=== PATIENT | female | born 1950 | race Asian ===

== ENCOUNTER 2021-06-05 12:08 | Inpatient (IN) | payer MEDICAID ==
[~2021-06-05] VITALS: Ht 157.5 cm; Wt 57.6 kg
[2021-06-05 12:10] VITALS: BP_SYST 124
[2021-06-05] MEDS ORDERED: KETOROLAC TROMETHAMINE 30 MG VIAL IVP ONE (12:15)
[2021-06-05 12:36] LABS: BASOPHILS % (AUTO) 0.5 % (0.0-2.0); EOSINOPHILS % (AUTO) 0.7 % (0.0-4.0); HEMATOCRIT 41.3 % (36-48); HEMOGLOBIN 14.4 g/dL (12.0-16.0); LYMPHOCYTES # (AUTO) 1.4 K/uL (1.0-5.5); LYMPHOCYTES % (AUTO) 36.3 % (20.5-51.5); MEAN CORPUSCULAR HEMOGLOBIN 31 pg (27-31); MEAN CORPUSCULAR HGB CONC 35 % (32-36); MEAN CORPUSCULAR VOLUME 88 fL (79.0-98.0); MONOCYTES # (AUTO) 0.4 K/uL (0.0-1.0); MONOCYTES % (AUTO) 9.5 % (1.7-9.3); PLATELET COUNT (AUTO) 187 K/uL (130-430); RED CELL DISTRIBUTION WIDTH 12.4 % (9.0-15.0); WHITE BLOOD COUNT (AUTO) 3.8 K/uL (4.8-10.8)
[2021-06-05 12:51] LABS: ANION GAP 6 (5-15); CALCIUM 9.3 mg/dL (8.4-11.0); CHLORIDE 98 mmol/L (98-107); CREATININE 0.87 mg/dL (0.55-1.30); GLUCOSE 249 mg/dL (70-99); POTASSIUM 4.4 mmol/L (3.5-5.1); SODIUM SERUM 134 mmol/L (136-145); UREA NITROGEN, BLOOD 8 mg/dL (8-21)
[2021-06-05 12:54] LABS: GFR AFRICAN AMERICAN 83 mL/min (>90)
[2021-06-05 13:09] LABS: ALANINE AMINOTRANSFERASE 49 U/L (12-78); ASPARTATE AMINOTRANSFERASE 47 U/L (10-37); TOTAL BILIRUBIN 0.2 mg/dL (0.0-1.0)
[2021-06-05 18:15] VITALS: BP_SYST 143
[2021-06-05] MEDS: NACL 0.9% 1,000 ML IV SCH (18:56)
[2021-06-05] MEDS: INSULIN LISPRO SLIDING SCALE 100 UNITS/ML VIAL (humaLOG) SUBCUT PRN ×2 (18:59→20:31)
[2021-06-05 20:15] VITALS: BP_SYST 137
[2021-06-05] MEDS ORDERED: ACETAMINOPHEN 325 MG TABLET PO PRN (20:15)
[2021-06-05] MEDS: ENOXAPARIN SODIUM 40 MG/0.4 ML SYRINGE SUBCUT SCH (20:31)
[2021-06-05] MEDS ORDERED: LIP20 PO (22:11)
[2021-06-05] MEDS ORDERED: ATEN-41 PO (22:11)
[2021-06-05] MEDS ORDERED: MECL-225 PO (22:11)
[2021-06-05] MEDS ORDERED: NEU300 PO (22:11)
[2021-06-05] MEDS ORDERED: POLY15DR64 EACH EYE (22:11)
[2021-06-05] MEDS ORDERED: GLIP10TA11 PO (22:11)
[2021-06-05] MEDS ORDERED: TRAZ300T11 PO (22:11)
[2021-06-05] MEDS ORDERED: OMEP20CA15 PO (22:11)
[2021-06-05] MEDS ORDERED: SITA100T11 PO (22:11)
[2021-06-06 00:12] VITALS: BP_SYST 135
[2021-06-06] MEDS: traZODone HCL 50 MG TABLET (DESYREL) PO PRN ×2 (00:15→22:45)
[2021-06-06] MEDS: NACL 0.9% 1,000 ML IV SCH ×2 (05:21→17:42)
[2021-06-06] MEDS: INSULIN LISPRO SLIDING SCALE 100 UNITS/ML VIAL (humaLOG) SUBCUT PRN ×4 (05:56→22:48)
[2021-06-06 06:41] LABS: BASOPHILS % (AUTO) 0.5 % (0.0-2.0); EOSINOPHILS % (AUTO) 0.8 % (0.0-4.0); HEMATOCRIT 39.3 % (36-48); HEMOGLOBIN 13.9 g/dL (12.0-16.0); LYMPHOCYTES # (AUTO) 2.1 K/uL (1.0-5.5); LYMPHOCYTES % (AUTO) 43.8 % (20.5-51.5); MEAN CORPUSCULAR HEMOGLOBIN 31 pg (27-31); MEAN CORPUSCULAR HGB CONC 35 % (32-36); MEAN CORPUSCULAR VOLUME 87 fL (79.0-98.0); MONOCYTES # (AUTO) 0.3 K/uL (0.0-1.0); MONOCYTES % (AUTO) 7.2 % (1.7-9.3); NEUTROPHILS # (AUTO) 2.3 K/uL (1.8-7.7); NEUTROPHILS % (AUTO) 47.7 % (40.0-70.0); PLATELET COUNT (AUTO) 195 K/uL (130-430); RED BLOOD CELL COUNT(AUTO) 4.52 MIL/uL (4.2-6.2); RED CELL DISTRIBUTION WIDTH 12.5 % (9.0-15.0); WHITE BLOOD COUNT (AUTO) 4.8 K/uL (4.8-10.8)
[2021-06-06] MEDS: ASPIRIN 81 MG TAB.CHEW PO SCH (08:55)
[2021-06-06 08:56] LABS: CALCIUM 8.4 mg/dL (8.4-11.0); CREATININE 0.8 mg/dL (0.55-1.30); POTASSIUM 3.8 mmol/L (3.5-5.1)
[2021-06-06] MEDS: ATENOLOL 25 MG TABLET(TENORMIN) PO SCH (08:56)
[2021-06-06 12:30] VITALS: BP_SYST 134
[2021-06-06 16:39] VITALS: BP_SYST 143
[2021-06-06] MEDS ORDERED: metFORMIN HCL 500 MG TABLET PO ONE (18:30)
[2021-06-06 20:00] VITALS: BP_SYST 135
[2021-06-06] MEDS: ENOXAPARIN SODIUM 40 MG/0.4 ML SYRINGE SUBCUT SCH (21:50)
[2021-06-07] VITALS: BP_SYST 132
[2021-06-07] MEDS: NACL 0.9% 1,000 ML IV SCH (01:31)
[2021-06-07] MEDS: INSULIN LISPRO SLIDING SCALE 100 UNITS/ML VIAL (humaLOG) SUBCUT PRN ×2 (07:12→17:38)
[2021-06-07 08:58] VITALS: BP_SYST 132
[2021-06-07] MEDS: ASPIRIN 81 MG TAB.CHEW PO SCH (09:00)
[2021-06-07] MEDS: metFORMIN HCL 500 MG TABLET PO SCH ×2 (09:01→17:37)
[2021-06-07] MEDS: ATENOLOL 25 MG TABLET(TENORMIN) PO SCH (09:01)
[2021-06-07 13:37] VITALS: BP_SYST 140
[2021-06-07 17:30] VITALS: BP_SYST 135
== END 2021-06-07 21:30 | disposition home or self-care (01) | DRG 204 ==
LOC: SED 12:08 → STU 16:25 → SMU 06-07 13:35
PROVIDERS: ADMIT Family Medicine; ATTEND Family Medicine
DX: R55 Syncope and collapse (principal); E11.9 Type 2 diabetes mellitus without complications; I10 Essential (primary) hypertension; R42 Dizziness and giddiness; Z20.822 Contact with and (suspected) exposure to COVID-19
CPT/HCPCS: 36415; 70450-TC; 71045; 72170-TC; 76376; 80048; 80053; 82962; 84484; 85025; 93005; 93306; 93880; 99285; G0378; J1650; J1885